=== PATIENT | male | born 1980 | race Caucasian/White ===

== ENCOUNTER 2017-12-09 11:38 | Emergency (ER) | payer OTHER ==
[2017-12-09 11:45] VITALS: TEMP 97.7; BMI 25.7
--- NOTE | 2017-12-09 12:09 | PDOC ---
History of Present Illness - General Chief Complaint: Pain Stated Complaint: PENILE COMPALINTS Time Seen by Provider: 12/09/17 11:58 - History of Present Illness Initial Comments: 12/09/17 13:00 The patient is a 37 year old male with no significant PMH who presents for evaluation of right testicular swelling. The patient reports a 2 month history of right testicular swelling with associated mild discomfort in the right testicle with ejaculation. He reports continued symptoms prompting his presentation to the ED for evaluation. He states that he is monogamous with his and denies any history of STI with recent screening for STI negative. He denies any pain or discharge and denies any pain or burning with urination. He denies fevers, chills, SOB, chest pain, nausea, vomiting, abdominal pain, or changes with bowel movements. Past History - Past Medical History Allergies/Adverse Reactions: Allergies Allergy/AdvReac Type Severity Reaction Status Date / Time No Known Allergies Allergy Verified 12/09/17 11:40 Home Medications: Ambulatory Orders NK [No Known Home Medication] 12/09/17 COPD: No GI Disorders: Yes (PANCEREATITIS) - Suicide/Smoking/Psychosocial Hx Smoking History: Current every day smoker Have you smoked in the past 12 months: Yes Information on smoking cessation initiated: Yes 'Breaking Loose' booklet given: 12/09/17 Hx Alcohol Use: No Drug/Substance Use Hx: No Substance Use Type: None Review of Systems - Review of Systems Comments:: 12/09/17 13:04 Constitutional: No fevers, chills, fatigue, malaise HEENT: No Rhinorrhea, nasal congestion, visual changes Cardiovascular: No chest pain, syncope, palpitations, lightheadedness Respiratory: No Cough, SOB, Hemoptysis, Gastrointestinal: No Abdominal pain, Nausea, Vomiting, Constipation, Diarrhea, Melena Genitourinary: Right testicular swelling. No Dysuria, Frequency, Urgency, Hesitancy, Hematuria, Flank pain Musculoskeletal: No Myalgia, arthralgia Skin: No rashes, itching, bruising, pallor Neurologic: No Headache, Dizziness, Numbness, Weakness, or Tingling Psychiatric: No Hallucinations. No SI or HI *Physical Exam - Vital Signs Last Vital Signs Temp Pulse Resp BP Pulse Ox 97.7 F 93 H 18 127/76 100 12/09/17 11:42 12/09/17 11:42 12/09/17 11:42 12/09/17 11:42 12/09/17 11:42 - Physical Exam Comments: 12/09/17 13:04 General Appearance: Nourished. No Apparent Distress HEENT: No Pharyngeal Erythema, Tonsillar Exudate, Tonsillar Erythema Neck: No Cervical Lymphadenopathy Respiratory/Chest: Lungs Clear, Normal Breath Sounds. No Crackles, Rales, Rhonchi, Wheezing Cardiovascular: Regular Rhythm, Regular Rate. No Murmur, Gallops, Rubs Gastrointestinal/Abdominal: Normal Bowel Sounds, Soft. No Guarding, Rebound, Tenderness Genital exam: Mildly larger right scrotum when compared with the left. No tenderness to palpation or masses. No discharge noted. Normal external exam. Musculoskeletal: No CVA Tenderness Extremity: Normal Capillary Refill Integumentary: Normal Color, Dry, Warm Neurologic: Fully Oriented, Alert, Normal Mood/Affect, Normal Response, Medical Decision Making - Medical Decision Making 12/09/17 13:06 The patient is a 37 year old male with no significant PMH who presents for evaluation of right testicular swelling. Differential includes but is not limited to: Hydrocele, Varicocele, UTI, torsion. Given the patient's symptoms we will obtain a ua, urine culture, and scrotal US to evaluate for possible etiologies. We will continue to monitor and reassess. 12/09/17 14:58 UA is unremarkable. US demonstrates small right hydrocele, but otherwise a normal exam as read by our radiologist. We are comfortable discharging the patient home at this time with urology follow up. We discussed the results and the plan with the patient who voiced understanding and is agreeable with the plan. *DC/Admit/Observation/Transfer Diagnosis at time of Disposition: Hydrocele Qualifiers: Hydrocele type: unspecified Qualified Code(s): N43.3 - Hydrocele, unspecified - Discharge Dispostion Disposition: HOME Condition at time of disposition: Good Admit: No - Referrals Referrals: Brock Jhaveri MD [Staff Physician] - - Patient Instructions Printed Discharge Instructions: DI for Hydrocele-Adult Additional Instructions: Please return to the ER if you experience concerning or worsening symptoms including worsening pain, discharge, or vomiting. Your ultrasound should a small build up of fluid in your right testicle consistent with a hydrocele. It is important that you call to schedule a follow up appointment with a Urologist (Dr. Jhaveri) whose number we have provided to further discuss management of your symptoms within 2-3 days. - Post Discharge Activity
[2017-12-09 13:06] LABS: URINE APPEARANCE CLEAR; URINE BILIRUBIN NEGATIVE (NEGATIVE); URINE BLOOD NEGATIVE (NEGATIVE); URINE COLOR DKYELLOW; URINE GLUCOSE (UA) NEGATIVE (NEGATIVE); URINE KETONE NEGATIVE (NEGATIVE); URINE LEUK ESTERASE NEGATIVE (NEGATIVE); URINE NITRITE NEGATIVE (NEGATIVE)
--- NOTE | 2017-12-09 13:10 | PDOC ---
Attending Attestation - Resident Resident Name: Kike Moralesel - ED Attending Attestation I have performed the following: I have examined & evaluated the patient, The case was reviewed & discussed with the resident, I agree w/resident's findings & plan, Exceptions are as noted - HPI HPI: 12/09/17 13:08 37-year-old healthy male with 2 months of progressive right testicular/scrotal fullness and discomfort. Symptoms initially only associated with ejaculation, over the last month has been more constant. Denies any redness or swelling, denies any urethral discharge or dysuria, denies any notable lymphadenopathy/ fevers/chills/wt loss. Monogamous with his . - Physicial Exam PE: 12/09/17 13:09 Afebrile, vital signs normal. Abdomen benign Slight fullness in the right inguinal/somatic cord region, no scrotal erythema or swelling, no testicular enlargement or mass, no epididymal tenderness or testicular tenderness. No urethral discharge. No palpable lymphadenopathy or hernias. - Medical Decision Making 12/09/17 13:10 Patient seen and evaluated with the resident. I agree with the overall evaluation, assessment, and management with the following summary of visit: 37-year-old male with subacute right scrotal discomfort/fullness over 2 months. No evidence of acute infectious process, possible varicocele/hydrocele, questionable hernia. Urinalysis Scrotal ultrasound Reassurance and urology referral
[2017-12-09 13:19] LABS: URINE PROTEIN 1+ (NEGATIVE)
[2017-12-09 13:20] LABS: EPI CELLS RARE /HPF (FEW); URINE HYALINE CAST 3 /lpf; URINE MUCUS MODERATE
[2017-12-09 15:42] VITALS: BP 121/72; PULSE 86
== END 2017-12-09 15:15 | disposition home or self-care (01) ==
LOC: JER 11:38
DX: N43.3 Hydrocele, unspecified (principal)
CPT/HCPCS: 76870-TC; 81003; 81015; 87086; 99281-25

== ENCOUNTER 2018-05-17 16:08 | Emergency (ER) | payer OTHER ==
[2018-05-17 16:19] VITALS: BP 116/91; PULSE 110; TEMP 98.3; BMI 22.1
--- NOTE | 2018-05-17 16:53 | PDOC ---
History of Present Illness - General Chief Complaint: Pain Stated Complaint: abd pain Time Seen by Provider: 05/17/18 16:39 History Source: Patient Exam Limitations: Clinical Condition - History of Present Illness Initial Comments: 05/17/18 16:48 Patient with no significant past medical history presenting with complain of umbilical and right lower quadrant pain with nausea which has been intermittent for the past 2 weeks and started worsening since yesterday. Patient reported he was told he had appendicitis a year ago in [place] and was treated with antibiotics and has not followed up since then. Denies fever, chills, vomiting. Reported abdominal pain is worse with food. Denies any other symptoms Timing/Duration: 24 hours Past History - Past Medical History Allergies/Adverse Reactions: Allergies Allergy/AdvReac Type Severity Reaction Status Date / Time No Known Allergies Allergy Verified 05/17/18 16:18 Home Medications: Ambulatory Orders Ciprofloxacin HCl [Cipro] 500 mg PO BID 7 Days #14 tablet 05/17/18 Polyethylene Glycol 3350 [Miralax (For Bowel Prep) -] 17 gm PO DAILY #5 bottle 05/17/18 Promethazine HCl [Phenergan -] 25 mg PO TID PRN #12 tablet 05/17/18 Simethicone 180 mg PO TID PRN #20 capsule 05/17/18 metroNIDAZOLE [Flagyl -] 500 mg PO DAILY #14 tablet 05/17/18 COPD: No GI Disorders: Yes (PANCEREATITIS) - Suicide/Smoking/Psychosocial Hx Smoking History: Current every day smoker Have you smoked in the past 12 months: Yes Number of Cigarettes Smoked Daily: 20 Information on smoking cessation initiated: Yes 'Breaking Loose' booklet given: 12/09/17 Hx Alcohol Use: No Drug/Substance Use Hx: No Substance Use Type: None Review of Systems - Review of Systems Able to Perform ROS?: Yes Is the patient limited [place] proficient: No Constitutional: No: Chills, Diaphoresis, Fever, Loss of Appetite, Malaise, Night Sweats, Weakness, Weight Stable, Unintentional Wgt. Loss, Unexplained wgt Loss, Other HEENTM: No: Eye Pain, Blurred Vision, Tearing, Recent change in vision, Double Vision, Cataracts, Ear Pain, Ocular Prothesis, Ear Discharge, Nose Pain, Nose Congestion, Tinnitus, Nose Bleeding, Hearing Loss, Throat Pain, Throat Swelling , Mouth Pain, Dental Problems, Difficulty Swallowing, Mouth Swelling, Other Respiratory: No: Cough, Orthopnea, Shortness of Breath, SOB with Exertion, SOB at Rest, Stridor, Wheezing, Productive cough, Hemoptysis, Other Cardiac (ROS): No: Chest Pain, Edema, Irregular Heart Rate, Lightheadedness, Palpitations, Syncope, Chest Tightness, Other ABD/GI: Yes: See HPI, Nausea, Other (periumbilical and RLQ pain). No: Abdominal Distended, Difficulty Swallowing, Rectal Bleeding, Vomiting, Abdominal cramping : No: Symptoms Reported, Hematuria All Other Systems: Reviewed and Negative *Physical Exam - Vital Signs Last Vital Signs Temp Pulse Resp BP Pulse Ox 98.3 F 110 H 20 116/91 99 05/17/18 16:16 05/17/18 16:16 05/17/18 16:16 05/17/18 16:16 05/17/18 16:16 - Physical Exam Comments: 05/17/18 16:52 GENERAL: Well developed, well nourished. Awake and alert. No acute distress. HEENT: Normocephalic, atraumatic. PERRLA, EOMI. No conjunctival pallor. Sclera are non- icteric. Moist mucous membranes. Oropharynx is clear. NECK: Supple. Full ROM. No JVD. Carotid pulses 2+ and symmetric, without bruits. No thyromegaly. No lymphadenopathy. CARDIOVASCULAR: Regular rate and rhythm. No murmurs, rubs, or gallops. Distal pulses are 2+ and symmetric. PULMONARY: No evidence of respiratory distress. Lungs clear to auscultation bilaterally. No wheezing, rales or rhonchi. ABDOMINAL: Moderate tenderness over her periumbilical area and right lower quadrant area.Soft. Non-distended. No rebound or guarding. No organomegaly. hypoactive bowel sounds diffusely. MUSCULOSKELETAL Normal range of motion at all joints. No bony deformities or tenderness. No CVA tenderness. EXTREMITIES: No cyanosis. No clubbing. No edema. No calf tenderness. SKIN: Warm and dry. Normal capillary refill. No rashes. No jaundice. NEUROLOGICAL: Alert, awake, appropriate. Cranial nerves 2-12 intact. No deficits to light touch and temperature in face, upper extremities and lower extremities. No motor deficits in the in face, upper extremities and lower extremities. Normoreflexic in the upper and lower extremities. Normal speech. Toes are down- going bilaterally. Gait is normal without ataxia. PSYCHIATRIC: Cooperative. Good eye contact. Appropriate mood and affect. General Appearance: Yes: Nourished, Appropriately Dressed, Mild Distress ED Treatment Course - LABORATORY CBC & Chemistry Diagram: 05/17/18 16:42 05/17/18 16:42 - RADIOLOGY Radiology Studies Ordered: Category Date Time Status ABDOMEN CT WITH CONTRAST* [CT] Stat CT Scan 05/17/18 16:[address] WITH CONTRAST* [CT] Stat CT Scan 05/17/18 16:45 Stop Req Medical Decision Making - Medical Decision Making 05/17/18 16:53 Patient with history of appendicitis a year ago present with complain of periumbilical right lower quadrant pain with nausea worsening since yesterday. Patient reported he was told he had appendicitis in [place] but patient not sure if it was appendicitis or pancreatitis. Exam shows moderate tenderness over periumbilical and right lower quadrant without rebound or guarding. Labs ordered and CT scan with IV contrast ordered to rule out appendicitis. 05/17/18 19:[address] with contrast shows moderate diffused bowels in RUQ/RLQ areas otherwise unremarkeable. official CT reading confirms results. Patient stable to be discharged on laxatives with cipro and flagyl Abx with GI follow-up. labs orded wnl. no elevated WBC on CBC. *DC/Admit/Observation/Transfer Diagnosis at time of Disposition: Nausea, Gastroenteritis Abdominal pain Qualifiers: Abdominal location: periumbilical Qualified Code(s): R10.33 - Periumbilical pain - Discharge Dispostion Disposition: HOME Condition at time of disposition: Stable Decision to Admit order: No - Prescriptions Prescriptions: Ciprofloxacin HCl [Cipro] 500 mg PO BID 7 Days #14 tablet metroNIDAZOLE [Flagyl -] 500 mg PO DAILY #14 tablet Polyethylene Glycol 3350 [Miralax (For Bowel Prep) -] 17 gm PO DAILY #5 bottle Promethazine HCl [Phenergan -] 25 mg PO TID PRN #12 tablet PRN Reason: nausea Simethicone 180 mg PO TID PRN #20 capsule PRN Reason: abdominal discomfort - Referrals Referrals: Can Vaughn MD [Staff Physician] - - Patient Instructions Additional Instructions: take medications as prescribed. increase fluid intake. follow-up with GI if no improvement in 3 days - Post Discharge Activity
[2018-05-17 17:07] LABS: EOS % 0.5 % (0-4.5); HEMATOCRIT 47.8 % (35.4-49); HEMOGLOBIN 16.1 GM/dL (11.7-16.9); LYMPH % 27.8 % (8-40); MCH 29.6 pg (25.7-33.7); MCHC 33.7 g/dl (32.0-35.9); MEAN CELL VOLUME 87.7 fl (80-96); MEAN PLT VOLUME 8.2 fl (7.5-11.1); MONO % 6.5 % (3.8-10.2); NEUT % 64.2 % (42.8-82.8); PLATELET COUNT 356 K/MM3 (134-434); RBC 5.45 M/mm3 (4.00-5.60); RDW 13.7 % (11.9-15.9); WHITE BLOOD COUNT 9.1 K/mm3 (4.0-10.0)
[2018-05-17 17:39] LABS: ALBUMIN 4.1 g/dl (3.4-5.0); ALK PHOS 107 U/L (45-117); ANION GAP 8 (8-16); BILIRUBIN,TOTAL 0.6 mg/dL (0.2-1.0); BLOOD UREA NITROGEN 10 mg/dL (7-18); CALCIUM 9.5 mg/dL (8.5-10.1); CHLORIDE 109 mmol/L (98-107); CO2 25 mmol/L (21-32); GLUCOSE,RANDOM 87 mg/dL (74-106); SGPT/ALT 52 U/L (12-78); SODIUM 142 mmol/L (136-145)
[2018-05-17 17:41] LABS: POTASSIUM 4.6 mmol/L (3.5-5.1); SGOT/AST 24 U/L (15-37)
== END 2018-05-17 20:02 | disposition home or self-care (01) ==
LOC: JER 16:08 → JERFT 16:08
DX: R10.33 Periumbilical pain (principal); K52.9 Noninfective gastroenteritis and colitis, unspecified; R11.0 Nausea; F17.210 Nicotine dependence, cigarettes, uncomplicated
CPT/HCPCS: 36415; 74177-TC; 80053; 85025; 86850; 86900; 86901; 99282-25

== ENCOUNTER 2020-10-09 04:37 | Day surgery (SDC) | payer OTHER ==
[2020-10-04 12:13] VITALS: BMI 24.3
[2020-10-09] MEDS ORDERED: MIDAZOLAM HCL 2 MG/2 ML SINGLE DOSE VIAL ONE (08:54)
[2020-10-09] MEDS ORDERED: PROPOFOL 20 ML ONE (09:02)
[2020-10-09] MEDS ORDERED: KETOROLAC TROMETHAMINE 30 MG/1 ML VIAL ONE (09:07)
[2020-10-09 14:55] VITALS: BP 120/70; PULSE 72; TEMP 97
== END 2020-10-09 11:20 | disposition home or self-care (01) ==
LOC: JASU-SURG 04:37
PROVIDERS: ATTEND Urology
PROC: 0TF4XZZ Fragmentation in Left Kidney Pelvis, External Approach (ICD-10-PCS; principal; 2020-10-09 08:30)
DX: N20.0 Calculus of kidney (principal)

== ENCOUNTER 2021-08-18 13:16 | Emergency (ER) | payer OTHER ==
[2021-08-18 13:26] VITALS: BP 168/90; PULSE 79; TEMP 98.1; BMI 26.4
[2021-08-18] MEDS ORDERED: ASPIRIN 81 MG CHEWABLE TABLETS PO ONE (14:59)
[2021-08-18 15:39] LABS: EOS % 0.9 % (0-4.5); HEMATOCRIT 46.3 % (35.4-49); LYMPH % 29.8 % (8-40); MCH 30.7 pg (25.7-33.7); MCHC 34.6 g/dl (32.0-35.9); MEAN CELL VOLUME 88.7 fl (80-96); MONO % 6.1 % (3.8-10.2); NEUT % 62.2 % (42.8-82.8); PLATELET COUNT 372 10^3/uL (134-434); RBC 5.22 M/mm3 (4.00-5.60); RDW 14.2 % (11.9-15.9); WHITE BLOOD COUNT 10.9 K/mm3 (4.0-10.0)
[2021-08-18 15:46] LABS: INR 1.05 (0.83-1.09); PROTHROMBIN TIME (PATIENT) 11.8 SEC (9.7-13.0)
[2021-08-18 15:49] LABS: ACTIVATED PTT 30.9 SECONDS (25.2-36.5)
[2021-08-18] MEDS ORDERED: ASPIRIN 81 MG CHEWABLE TABLETS ONE (15:53)
[2021-08-18 16:08] LABS: ALBUMIN 3.9 g/dl (3.4-5.0); CALCIUM 9.1 mg/dL (8.5-10.1); MAGNESIUM 2.3 mg/dL (1.8-2.4)
[2021-08-18 16:10] LABS: CREATININE 0.9 mg/dL (0.55-1.3)
[2021-08-18 16:12] LABS: BILIRUBIN,TOTAL 0.4 mg/dL (0.2-1); TOT PROT 7.7 g/dl (6.4-8.2)
[2021-08-18 16:20] LABS: URINE APPEARANCE CLEAR; URINE BILIRUBIN NEGATIVE (NEGATIVE); URINE COLOR YELLOW; URINE GLUCOSE (UA) NEGATIVE (NEGATIVE); URINE KETONE TRACE (NEGATIVE); URINE LEUK ESTERASE NEGATIVE (NEGATIVE); URINE NITRITE NEGATIVE (NEGATIVE); URINE PROTEIN TRACE (NEGATIVE)
[2021-08-18 16:28] LABS: METHADONE, UR NEGATIVE (NEGATIVE)
[2021-08-18 16:29] LABS: OPIATES, URI NEGATIVE (NEGATIVE); PHENCYCLIDINE,URINE NEGATIVE (NEGATIVE); URINE AMPHETAMINES NEGATIVE (NEGATIVE); URINE BARBITURATES NEGATIVE (NEGATIVE); URINE BENZODIAZEPINES NEGATIVE (NEGATIVE)
[2021-08-18 16:32] LABS: SYPHILIS W/ RPR CONF NON-REACTIVE (NONREACTIVE)
[2021-08-18 16:34] LABS: COCAINE, UR NEGATIVE (NEGATIVE)
[2021-08-18 17:01] LABS: HIV INTERPRETATION NEGATIVE (NEGATIVE)
== END 2021-08-18 17:00 | disposition home or self-care (01) ==
LOC: JER 13:16
DX: R07.89 Other chest pain (principal)
CPT/HCPCS: 36415; 71046-TC-FY; 80053; 80307; 81003; 82550; 82553; 83690; 83735; 84484; 85025; 85610; 85730; 86780; 87389; 87491; 87591; 93005; 93010; 99284-25; C9803; U0003; U0005

== ENCOUNTER 2022-04-23 04:23 | Day surgery (SDC) | payer OTHER ==
[2022-04-19 16:14] VITALS: BMI 26.4
[2022-04-23] MEDS ORDERED: MIDAZOLAM HCL 2 MG/2 ML SINGLE DOSE VIAL ONE (15:27)
[2022-04-23 17:02] VITALS: BP 123/75; PULSE 72; TEMP 97.8
== END 2022-04-23 16:40 | disposition home or self-care (01) ==
LOC: JASU-SURG 04:23
PROVIDERS: ATTEND Urology
PROC: 0TF4XZZ Fragmentation in Left Kidney Pelvis, External Approach (ICD-10-PCS; principal; 2022-04-23 15:30)
DX: N20.0 Calculus of kidney (principal)

== ENCOUNTER 2022-05-15 07:22 | Emergency (ER) | payer OTHER ==
[2022-05-15 07:27] VITALS: BMI 25.8
[2022-05-15] MEDS ORDERED: KETOROLAC TROMETHAMINE 30 MG/1 ML VIAL ONE (08:26)
[2022-05-15 08:39] LABS: BASO % 0.8 % (0-2.0); EOS % 1.3 % (0-4.5); HEMATOCRIT 43.4 % (35.4-49); HEMOGLOBIN 14.7 GM/dL (11.7-16.9); LYMPH % 28.3 % (8-40); MCH 29.8 pg (25.7-33.7); MCHC 33.9 g/dl (32.0-35.9); NEUT % 61.6 % (42.8-82.8); PLATELET COUNT 318 10^3/uL (134-434); RBC 4.94 M/mm3 (4.00-5.60); RDW 14.3 % (11.9-15.9); WHITE BLOOD COUNT 10.5 K/mm3 (4.0-10.0)
[2022-05-15 08:43] LABS: EPI CELLS 5 /uL (0-25.1); HYALINE CASTS 1 /uL (0-3.1); URINE APPEARANCE CLEAR; URINE BACTERIA 7 /uL (0-1359); URINE BILIRUBIN NEGATIVE (NEGATIVE); URINE COLOR YELLOW; URINE GLUCOSE (UA) NEGATIVE (NEGATIVE); URINE KETONE TRACE (NEGATIVE); URINE LEUK ESTERASE NEGATIVE (NEGATIVE); URINE NITRITE NEGATIVE (NEGATIVE); URINE PROTEIN NEGATIVE (NEGATIVE); URINE RBC 717 /uL (0-23.9); URINE UROBILINOGEN 0.2 mg/dL (0.2-1.0); URINE WBC 5 /uL (0-25.8)
[2022-05-15 09:28] LABS: CHLORIDE 110 mmol/L (98-107); SODIUM 136 mmol/L (136-145)
[2022-05-15 09:30] LABS: CALCIUM 8.8 mg/dL (8.5-10.1); CO2 21 mmol/L (21-32); GLUCOSE,RANDOM 110 mg/dL (74-106)
[2022-05-15 09:31] LABS: ALBUMIN 3.6 g/dl (3.4-5.0); BLOOD UREA NITROGEN 15.9 mg/dL (7-18)
[2022-05-15 09:34] LABS: CREATININE 1.4 mg/dL (0.55-1.3); SGOT/AST 56 U/L (15-37)
[2022-05-15 09:35] LABS: BILIRUBIN,TOTAL 0.6 mg/dL (0.2-1); TOT PROT 7.4 g/dl (6.4-8.2)
[2022-05-15 09:36] LABS: ALK PHOS 94 U/L (45-117)
[2022-05-15] MEDS ORDERED: morphine CARPU-JECT 4 MG/1 ML DISP.SYRIN IVPUSH ONE ×2 (09:36→10:53)
[2022-05-15] MEDS ORDERED: SODIUM CHLORIDE 0.9% 500 ML INFUS.BAG IV ONE (09:36)
[2022-05-15 09:52] LABS: ANION GAP 6 MMOL/L (8-16); SGPT/ALT 34 U/L (13-61)
[2022-05-15] MEDS ORDERED: KETOROLAC TROMETHAMINE 15 MG/ML VIAL IVPUSH ONE (09:55)
[2022-05-15 11:48] LABS: ALBUMIN 3.4 g/dl (3.4-5.0); BLOOD UREA NITROGEN 16.2 mg/dL (7-18); CALCIUM 8.4 mg/dL (8.5-10.1)
[2022-05-15 11:52] LABS: CREATININE 1.2 mg/dL (0.55-1.3)
[2022-05-15 11:53] LABS: BILIRUBIN,TOTAL 0.2 mg/dL (0.2-1); TOT PROT 6.3 g/dl (6.4-8.2)
[2022-05-15 14:04] VITALS: BP 122/78; PULSE 19; RESP 19; TEMP 98.3
== END 2022-05-15 14:04 | disposition home or self-care (01) ==
LOC: JER 07:22
PROC: 3E033GC Introduction of Other Therapeutic Substance into Peripheral Vein, Percutaneous Approach (ICD-10-PCS; principal; 2022-05-15)
DX: N20.1 Calculus of ureter (principal)
CPT/HCPCS: 36415; 74176-TC; 76775-TC; 80053; 81003; 85025; 87086; 99285-25

== ENCOUNTER 2022-05-21 15:39 | Emergency (ER) | payer OTHER ==
[2022-05-21 15:59] VITALS: BP 129/84; PULSE 81; RESP 18; TEMP 98.1; BMI 25.8
[2022-05-21] MEDS ORDERED: ACETAMINOPHEN 500 MG TABLET (FP) PO ONE (18:11)
[2022-05-21] MEDS ORDERED: ACETAMINOPHEN 500 MG TABLET (FP) ONE (18:32)
== END 2022-05-21 19:26 | disposition home or self-care (01) ==
LOC: JER 15:39
DX: N23 Unspecified renal colic (principal)
CPT/HCPCS: 99283-25

== ENCOUNTER 2024-02-06 23:03 | Emergency (ER) | payer OTHER ==
[2024-02-06 23:14] VITALS: BMI 25.8
[2024-02-07 00:39] LABS: PH,URINE 5.5 (5.0-8.0); URINE APPEARANCE CLEAR; URINE BILIRUBIN NEGATIVE (NEGATIVE); URINE COLOR YELLOW; URINE GLUCOSE (UA) NEGATIVE (NEGATIVE); URINE KETONE NEGATIVE (NEGATIVE); URINE LEUK ESTERASE NEGATIVE (NEGATIVE); URINE NITRITE NEGATIVE (NEGATIVE); URINE PROTEIN NEGATIVE (NEGATIVE)
[2024-02-07 00:52] VITALS: BP 101/72; PULSE 103; RESP 22; TEMP 99.7
[2024-02-07] MEDS ORDERED: KETOROLAC TROMETHAMINE 15 MG/ML VIAL ONE (01:03)
[2024-02-07] MEDS: KETOROLAC TROMETHAMINE 15 MG/ML VIAL IVPUSH ONE (01:06)
[2024-02-07] MEDS: LACTATED RINGERS SOLUTION 1000 ML INFUS.BAG IV ONE (01:06)
[2024-02-07 01:13] LABS: BASO % 1.3 % (0-2.0); EOS % 0.9 % (0-4.5); HEMATOCRIT 39.5 % (35.4-49); HEMOGLOBIN 13.5 GM/dL (11.7-16.9); MCH 30.1 pg (25.7-33.7); MCHC 34.1 g/dl (32.0-35.9); MEAN CELL VOLUME 88.3 fl (80-96); MEAN PLT VOLUME 7.8 fl (7.5-11.1); MONO % 7.5 % (3.8-10.2); NEUT % 64.3 % (42.8-82.8); PLATELET COUNT 350 10^3/uL (134-434); RBC 4.47 M/mm3 (4.00-5.60); RDW 13.9 % (11.9-15.9); WHITE BLOOD COUNT 11.9 K/mm3 (4.0-10.0)
[2024-02-07 01:24] LABS: POTASSIUM 4.2 mmol/L (3.5-5.1)
[2024-02-07 01:26] LABS: CALCIUM 8.8 mg/dL (8.5-10.1)
[2024-02-07 01:27] LABS: BLOOD UREA NITROGEN 11.3 mg/dL (7-18)
[2024-02-07 01:30] LABS: CREATININE 0.8 mg/dL (0.55-1.3)
[2024-02-07 01:31] LABS: TOT PROT 6.7 g/dl (6.4-8.2)
[2024-02-07 01:32] LABS: BILIRUBIN,TOTAL 0.4 mg/dL (0.2-1)
[2024-02-07 02:47] LABS: INR 1.11 (0.83-1.09); PROTHROMBIN TIME (PATIENT) 12.5 SEC (9.7-13.0)
[2024-02-07 02:50] LABS: ACTIVATED PTT 30.3 SECONDS (25.2-36.5)
== END 2024-02-07 03:43 | disposition home or self-care (01) ==
LOC: JER 23:03
PROC: 3E033NZ Introduction of Analgesics, Hypnotics, Sedatives into Peripheral Vein, Percutaneous Approach (ICD-10-PCS; principal; 2024-02-07)
DX: N20.0 Calculus of kidney (principal)
CPT/HCPCS: 36415; 74176-TC; 80053; 81003; 85025; 85610; 85730; 86850; 86900; 86901; 87086; 99284-25